=== PATIENT | male | born 1940 | race Caucasian/White ===

== ENCOUNTER 2020-03-14 12:50 | Outpatient (CLI) | payer OTHER, MEDICARE, SELFPAY ==
--- NOTE | ~2020-03-14 | US_ITS ---
EXAMINATION: US paracentesis abd w/image DATE: 03/14/2020 13:59 INDICATION: Ascites. TECHNIQUE: The procedure and its risks, benefits, and alternatives were discussed with the patient. P otential risks discussed included bleeding and infection. The skin was prepped and draped in sterile fashion. 1% lidocaine was used for local anesthesia. Under ultrasound guidance, a 5 Fr catheter with trochar was advanced into the ascites in the left lower quadrant. Fluid was aspirated. The catheter w as removed, and a dressing was applied. There were no immediate complications. FINDINGS: Ultrasound images demonstrate ascites and the catheter within the fluid. IMPRESSION: 1. Successful ultrasound-guided paracentesis yielding 5000 mL of yellow, cloudy fluid. Reviewed, dictated and finalized at location A. 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 Successful ultrasound-guided paracentesis yielding 5000 mL of yellow, cloud y fluid.
[2020-03-14 13:13] LABS: Mean Platelet Volume 8.5 fl (7.4-10.4); Platelet Count Result 177 k/mm3 (150-375)
[2020-03-14 13:24] LABS: INR 1.3; Prothrombin Time 16.6 Seconds (11.1-14.7)
== END 2020-03-14 12:51 | disposition home or self-care (01) ==
PROVIDERS: Radiology Diagnostic Radiology; PCP Family Medicine; Visit Provider Family Medicine
DX: K70.30 Alcoholic cirrhosis of liver without ascites (principal)
CPT/HCPCS: 36415; 49083; 85049; 85610

== ENCOUNTER 2020-04-12 10:30 | Outpatient (RCR) | payer OTHER, MEDICARE, SELFPAY ==
--- NOTE | ~2020-04-12 | US_ITS ---
EXAMINATION: US paracentesis abd w/image DATE: 03/22/2020 10:04 INDICATION: Ascites. TECHNIQUE: The procedure and its risks, benefits, and alternatives were discussed with the patient. P otential risks discussed included bleeding and infection. The skin was prepped and draped in sterile fashion. 1% lidocaine was used for local anesthesia. Under ultrasound guidance, a 5 Fr catheter with trochar was advanced into the ascites in the left lower quadrant. Fluid was aspirated. The catheter w as removed, and a dressing was applied. There were no immediate complications. FINDINGS: Ultrasound images demonstrate ascites and the catheter within the fluid. IMPRESSION: 1. Successful ultrasound-guided paracentesis yielding 5000 mL of clear, yellow fluid. Reviewed, dictated and finalized at location A. 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
== END 2020-06-20 23:59 | disposition home or self-care (01) ==
LOC: ANHIMG 10:30
PROVIDERS: PCP Family Medicine; Visit Provider Family Medicine
DX: K70.31 Alcoholic cirrhosis of liver with ascites (principal)
CPT/HCPCS: 49083